=== PATIENT | female | born 1935 | race Caucasian/White ===

== ENCOUNTER 2021-04-23 17:39 | Emergency (ER) | payer MEDICARE ==
[~2021-04-23] VITALS: Ht 152.4 cm; Wt 60.3 kg
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
[2021-04-23] MEDS ORDERED: TAPE50TA2 PO (18:03)
[2021-04-23] MEDS ORDERED: LANS30CA56 PO (18:03)
[2021-04-23 18:27] LABS: BASOPHILS % (AUTO) 0.8 % (0.0-2.0); EOSINOPHILS % (AUTO) 3.4 % (0.0-6.0); HEMATOCRIT 37 % (33-45); HEMOGLOBIN 12.9 g/dL (11.5-14.8); LYMPHOCYTES # (AUTO) 1.3 K/uL (0.8-4.8); LYMPHOCYTES % (AUTO) 21.7 % (20.0-44.0); MEAN CORPUSCULAR HGB CONC 35 g/dl (31.0-36.0); MEAN CORPUSCULAR VOLUME 94 fL (82-100); MONOCYTES # (AUTO) 0.6 K/uL (0.1-1.30); MONOCYTES % (AUTO) 9.7 % (2.0-12.0); NEUTROPHILS # (AUTO) 3.8 K/uL (1.8-8.9); NEUTROPHILS % (AUTO) 64.4 % (43.0-81.0); PLATELET COUNT (AUTO) 280 K/uL (150-450); RED BLOOD CELL COUNT(AUTO) 3.94 MIL/uL (4.0-5.2); WHITE BLOOD COUNT (AUTO) 5.8 K/uL (4.3-11.0)
--- NOTE | 2021-04-23 18:29 | NUR ---
radiology at bedside to perform xrays as needed.
[2021-04-23 18:41] LABS: CALCIUM, SERUM 9.1 mg/dL (8.5-10.1); CREATININE 0.7 mg/dL (0.6-1.3); POTASSIUM 3.8 mmol/L (3.5-5.1)
[2021-04-23 18:46] LABS: ALBUMIN 3.6 g/dL (3.4-5.0); BILIRUBIN,DIRECT 0.1 mg/dL (0.0-0.2); BILIRUBIN,TOTAL 0.3 mg/dL (0.2-1.0); TOTAL PROTEIN, SERUM 7.2 g/dL (6.4-8.2)
--- NOTE | 2021-04-23 19:04 | NUR ---
IV inserted on R AC 18G.
[2021-04-23] MEDS ORDERED: IV NS 0.9% 250 ML IV ONE (19:31)
[2021-04-23] MEDS ORDERED: IOHEXOL-350 100 ML VIAL IV ONE (19:31)
--- NOTE | 2021-04-23 19:31 | NUR ---
PATIENT TAKEN TO CT
--- NOTE | 2021-04-23 20:03 | NUR ---
nohemy, daughter in law [phone]
[2021-04-23] MEDS ORDERED: TAPE75TA2 PO (21:44)
--- NOTE | 2021-04-23 21:56 | NUR ---
Patient discharged to home in stable condition. Written and verbal after care instructions given. Patient verbalizes understanding of instruction.
[2021-04-23 22:06] VITALS: BP 123/66
== END 2021-04-23 22:06 | disposition home or self-care (01) ==
LOC: ER 17:42
DX: S51.811A Laceration without foreign body of right forearm, initial encounter (principal); S16.1XXA Strain of muscle, fascia and tendon at neck level, initial encounter; S70.12XA Contusion of left thigh, initial encounter; S80.11XA Contusion of right lower leg, initial encounter; S29.8XXA Other specified injuries of thorax, initial encounter; R51.9 Headache, unspecified; K21.9 Gastro-esophageal reflux disease without esophagitis; E27.9 Disorder of adrenal gland, unspecified; Z90.89 Acquired absence of other organs; Z90.49 Acquired absence of other specified parts of digestive tract; Z79.899 Other long term (current) drug therapy; V49.49XA Driver injured in collision with other motor vehicles in traffic accident, initial encounter; Y93.89 Activity, other specified; Y92.488 Other paved roadways as the place of occurrence of the external cause; Y99.8 Other external cause status
CPT/HCPCS: 36415; 70450; 70498; 71045; 71275; 72125; 73090; 73590; 80048; 80076; 84484; 85025; 85730; 93005; 99285; J7050; Q9967